=== PATIENT | female | born 1970 | race Caucasian/White ===

== ENCOUNTER 2019-11-28 20:44 | Emergency (ER) | payer OTHER, SELFPAY ==
[2019-11-28 20:52] VITALS: BP 123/106; PULSE 81; RESP 15; TEMP 36.9; O2SAT 100
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
[2019-11-28 22:08] VITALS: BP 128/79; PULSE 74; RESP 16; O2SAT 99
== END 2019-11-28 22:10 | disposition home or self-care (01) ==
PROVIDERS: Emergency Provider Emergency Medicine; PCP Internal Medicine
DX: T23.231A Burn of second degree of multiple right fingers (nail), not including thumb, initial encounter (principal); X12.XXXA Contact with other hot fluids, initial encounter; T31.0 Burns involving less than 10% of body surface
CPT/HCPCS: 16020; 99283; A9270

== ENCOUNTER 2022-05-12 13:40 | Emergency (ER) | payer OTHER, SELFPAY ==
[2022-05-12 14:55] VITALS: BP 118/74; PULSE 82; RESP 16; TEMP 36.4; O2SAT 100
--- NOTE | 2022-05-12 15:51 | ED.URI ---
HPI - URI/Sore Throat General Chief Complaint: Upper Respiratory Infection Stated Complaint: stuffy nose/drainage,cough,ears clogged Time Seen by Provider: 05/12/22 15:51 Source: patient and RN notes reviewed Mode of arrival: ambulatory Limitations: no limitations History of Present Illness HPI Narrative: 52-year-old female presented for complaint headache, sinus pressure/congestion, cough, sore throat. Onset 3 days. Using Vicks and cough drops without relief. Denies shortness of breath, wheezing, nausea, vomiting, diarrhea, fevers or chills. Denies sick contacts. MD elicited complaint: cough Related Data Home Medications Medication Instructions Recorded Confirmed sertraline 25 mg tablet 25 mg PO DIRECTED 05/12/22 05/12/22 Allergies Allergy/AdvReac Type Severity Reaction Status Date / Time Sulfa (Sulfonamide Allergy Unknown Hives Verified 05/12/22 15:45 Antibiotics) Review of Systems Review of Systems: Per HPI [facility] Surgical History Surgical History History of cardiac radiofrequency ablation History of section Family History Family History Father Hypertension Family history of elevated blood lipids Family history of diabetes mellitus in first degree relative Family history of heart disease in male family member before age 55 Patient's father is in good health Mother Hypertension Family history of osteoarthritis Family history of elevated blood lipids Family history of obesity Family history of heart disease in male family member before age 55 Patient's mother is in good health Other Diabetes mellitus Family history of malignant neoplasm Social History Social History Smoking status: Never smoker Alcohol intake: current Exam Narrative: GENERAL: Ill-appearing, nontoxic EYES: PERRLA, conjunctivae clear ENT: Mucous membranes moist. TMs pearly seay with dull light reflex bilaterally; no tragal tenderness. Oropharynx erythematous without lesions or exudate, no drooling, no hoarseness, no trismus, uvula midline. No tripod positioning, muffled voice, soft palate or pharyngeal wall bulging NECK: Supple. No lymphadenopathy CHEST: Clear to auscultation, breath sounds equal. HEART: Regular rate and rhythm. No murmur heard. SKIN: Warm, dry, no rash. NEURO: Alert and oriented x3. PSYCH: Normal mood and affect Course Course Emergency Course: Patient is aware of diagnosis, understands and agrees to treatment plan. Anticipatory guidance given. Patient agrees to follow-up as directed and is aware of reasons to seek care at the emergency department. Portions of this record may have been created with voice recognition software Level of Care: Express Care Visit Vital Signs Vital signs: Vital Signs Temperature 97.6 F 05/12/22 14:55 Pulse Rate 82 05/12/22 14:55 Respiratory Rate 16 05/12/22 14:55 Blood Pressure 118/74 05/12/22 14:55 Pulse Oximetry 100 05/12/22 14:55 Temperature 97.6 F 05/12/22 14:55 Pulse Rate 82 05/12/22 14:55 Respiratory Rate 16 05/12/22 14:55 Blood Pressure 118/74 05/12/22 14:55 Pulse Oximetry 100 05/12/22 14:55 reviewed MDM - URI/Sore Throat MDM Narrative Medical decision making narrative: COVID flu and strep result reviewed with patient. Advised supportive measures and signs/symptoms to go to the ER. Pt is appropriate for outpt treatment and f/u. Differential Diagnosis Differential diagnosis: Likely upper respiratory infection, sinusitis and viral infection Lab Data Labs: Influenza A Screen Negative Reference Range: Negative Influenza B Screen Negative Reference Range: Negative Strep Screen Presump
== END 2022-05-12 16:41 | disposition home or self-care (01) ==
PROVIDERS: Emergency Provider Nurse Practitioner Family
DX: B34.9 Viral infection, unspecified (principal); Z20.822 Contact with and (suspected) exposure to COVID-19
CPT/HCPCS: 87081; 87426; 87804; 87880; 99213; C9803; G0463